=== PATIENT | female | born 1975 | race Two or more races ===

== ENCOUNTER 2016-07-24 10:59 | Outpatient (CLI) | payer BC ==
[2016-07-24 12:02] LABS: BASOPHILS % (AUTO) 0.9 % (0.0-2.0); EOSINOPHILS # (AUTO) 0.1 /CMM (0.0-0.7); EOSINOPHILS % (AUTO) 2.9 % (0.0-6.0); HEMATOCRIT 40 % (33-45); LYMPHOCYTES # (AUTO) 1.7 /CMM (0.8-4.8); LYMPHOCYTES % (AUTO) 47.4 % (20.0-44.0); MEAN CORPUSCULAR HEMOGLOBIN 29 PG (26.0-33.0); MEAN CORPUSCULAR HGB CONC 33 g/dl (31.0-36.0); MEAN CORPUSCULAR VOLUME 87 fL (82-100); MONOCYTES # (AUTO) 0.3 /CMM (0.1-1.30); MONOCYTES % (AUTO) 7.5 % (2.0-12.0); NEUTROPHILS # (AUTO) 1.5 /CMM (1.8-8.9); NEUTROPHILS % (AUTO) 41.3 % (43.0-81.0); PLATELET COUNT (AUTO) 192 /CMM (150-450); RDW COEFFICIENT OF VARIATION 13.1 (11.5-15.0); RED BLOOD CELL COUNT(AUTO) 4.58 MIL/uL (4.0-5.2); WHITE BLOOD COUNT (AUTO) 3.7 K/uL (4.3-11.0)
[2016-07-24 12:21] LABS: APPEARANCE,URINE CLEAR (CLEAR); BILIRUBIN,URINE NEGATIVE (NEGATIVE); BLOOD, URINE TRACE-INTA Ery/uL (NEGATIVE); COLOR,URINE YELLOW (YELLOW); KETONES,URINE NEGATIVE (NEGATIVE); LEUKOCYTE ESTERASE ,URINE 2+ (NEGATIVE); NITRITE, URINE NEGATIVE (NEGATIVE); PH,URINE 5.5 (5.0-8.0); PROTEIN,URINE NEGATIVE (NEGATIVE); UGLUCOSE NEGATIVE (NEGATIVE); UROBILINOGEN,URINE 0.2 EU/dL (0.2)
[2016-07-24 12:33] LABS: BILIRUBIN,TOTAL 0.8 mg/dL (0.2-1.0); CALCIUM, SERUM 8.8 mg/dL (8.5-10.1); CREATININE 0.7 mg/dL (0.6-1.3); POTASSIUM 3.9 mmol/L (3.5-5.1)
[2016-07-24 12:42] LABS: THYROID STIMULATING HORMONE 1.785 uIU/mL (0.358-3.74)
[2016-07-24 13:54] LABS: ADD URINE CULTURE YES; BACTERIA,URINE Few /HPF (None Seen); MUCUS,URINE Moderate /LPF (None Seen); RBC,URINE 0-2 /HPF (0-2); SQUAMOUS EPITHELIAL CELL,UR Moderate /HPF (None Seen); WBC,URINE 21-50 /HPF (0-3)
== END 2016-07-24 23:59 | disposition home or self-care (01) ==
LOC: LAB 10:59
PROVIDERS: ATTEND Internal Medicine
DX: Z00.00 Encounter for general adult medical examination without abnormal findings (principal)
CPT/HCPCS: 36415; 80053-TC; 80061-TC; 81000-TC; 84443-TC; 85025-TC; 87086-TC

== ENCOUNTER 2016-10-15 08:29 | Outpatient (CLI) | payer BC ==
[2016-10-15 09:11] LABS: BASOPHILS % (AUTO) 0.9 % (0.0-2.0); EOSINOPHILS # (AUTO) 0.2 /CMM (0.0-0.7); EOSINOPHILS % (AUTO) 3.7 % (0.0-6.0); HEMATOCRIT 38 % (33-45); HEMOGLOBIN 12.6 g/dL (11.5-14.8); LYMPHOCYTES # (AUTO) 2.4 /CMM (0.8-4.8); LYMPHOCYTES % (AUTO) 48.6 % (20.0-44.0); MEAN CORPUSCULAR HEMOGLOBIN 29 PG (26.0-33.0); MEAN CORPUSCULAR HGB CONC 33 g/dl (31.0-36.0); MEAN CORPUSCULAR VOLUME 87 fL (82-100); MONOCYTES # (AUTO) 0.4 /CMM (0.1-1.30); MONOCYTES % (AUTO) 8.2 % (2.0-12.0); NEUTROPHILS # (AUTO) 1.9 /CMM (1.8-8.9); NEUTROPHILS % (AUTO) 38.6 % (43.0-81.0); PLATELET COUNT (AUTO) 207 /CMM (150-450); RDW COEFFICIENT OF VARIATION 12.9 (11.5-15.0); RED BLOOD CELL COUNT(AUTO) 4.31 MIL/uL (4.0-5.2)
== END 2016-10-15 23:59 | disposition home or self-care (01) ==
LOC: LAB 08:29
PROVIDERS: ATTEND Internal Medicine
DX: D72.819 Decreased white blood cell count, unspecified (principal)
CPT/HCPCS: 36415; 85025-TC

== ENCOUNTER 2016-11-04 07:51 | Outpatient (CLI) | payer BC ==
[2016-11-04 09:15] LABS: BASOPHILS % (AUTO) 1.1 % (0.0-2.0); EOSINOPHILS # (AUTO) 0.2 /CMM (0.0-0.7); EOSINOPHILS % (AUTO) 4.2 % (0.0-6.0); HEMATOCRIT 37 % (33-45); HEMOGLOBIN 12.3 g/dL (11.5-14.8); LYMPHOCYTES # (AUTO) 2.2 /CMM (0.8-4.8); LYMPHOCYTES % (AUTO) 50.5 % (20.0-44.0); MEAN CORPUSCULAR HEMOGLOBIN 29 PG (26.0-33.0); MEAN CORPUSCULAR HGB CONC 33 g/dl (31.0-36.0); MEAN CORPUSCULAR VOLUME 88 fL (82-100); MONOCYTES # (AUTO) 0.4 /CMM (0.1-1.30); MONOCYTES % (AUTO) 8.4 % (2.0-12.0); NEUTROPHILS # (AUTO) 1.5 /CMM (1.8-8.9); NEUTROPHILS % (AUTO) 35.8 % (43.0-81.0); PLATELET COUNT (AUTO) 190 /CMM (150-450); RDW COEFFICIENT OF VARIATION 13.2 (11.5-15.0); WHITE BLOOD COUNT (AUTO) 4.3 K/uL (4.3-11.0)
[2016-11-04 09:40] LABS: ALANINE AMINOTRANSFERASE 23 U/L (12-78); ALBUMIN 3.9 g/dL (3.4-5.0); ASPARTATE AMINOTRANSFERASE 19 U/L (15-37); BILIRUBIN,TOTAL 0.5 mg/dL (0.2-1.0); CALCIUM, SERUM 8.5 mg/dL (8.5-10.1); CARBON DIOXIDE 26 mmol/L (21-32); CHLORIDE 104 mmol/L (98-107); CREATININE 0.5 mg/dL (0.6-1.3); GLUCOSE 82 mg/dL (74-106); POTASSIUM 4.3 mmol/L (3.5-5.1); SODIUM SERUM 139 mmol/L (136-145); TOTAL PROTEIN, SERUM 6.9 g/dL (6.4-8.2); UREA NITROGEN, BLOOD 12 mg/dL (7-18)
[2016-11-04 09:56] LABS: ALKALINE PHOSPHATASE 52 U/L (46-116)
[2016-11-04 10:01] LABS: C-REACTIVE PROTEIN < 0.2 mg/dL (0.0-0.9)
== END 2016-11-04 23:59 | disposition home or self-care (01) ==
LOC: LAB 07:51
PROVIDERS: ATTEND Internal Medicine Hematology & Oncology
DX: D72.820 Lymphocytosis (symptomatic) (principal); N60.01 Solitary cyst of right breast; N60.02 Solitary cyst of left breast; Z80.42 Family history of malignant neoplasm of prostate; Z80.3 Family history of malignant neoplasm of breast
CPT/HCPCS: 36415; 80053-TC; 82746; 85025-TC; 86140-TC; 86431-TC; 86706; 86803; 87340

== ENCOUNTER 2016-12-09 08:03 | Outpatient (CLI) | payer BC ==
[2016-12-09 08:55] LABS: BASOPHILS % (AUTO) 0.8 % (0.0-2.0); EOSINOPHILS # (AUTO) 0.2 /CMM (0.0-0.7); EOSINOPHILS % (AUTO) 4.4 % (0.0-6.0); HEMATOCRIT 40 % (33-45); HEMOGLOBIN 13.3 g/dL (11.5-14.8); LYMPHOCYTES # (AUTO) 2.4 /CMM (0.8-4.8); LYMPHOCYTES % (AUTO) 45.2 % (20.0-44.0); MEAN CORPUSCULAR HEMOGLOBIN 29 PG (26.0-33.0); MEAN CORPUSCULAR HGB CONC 33 g/dl (31.0-36.0); MEAN CORPUSCULAR VOLUME 88 fL (82-100); MONOCYTES # (AUTO) 0.4 /CMM (0.1-1.30); MONOCYTES % (AUTO) 7.9 % (2.0-12.0); NEUTROPHILS # (AUTO) 2.2 /CMM (1.8-8.9); NEUTROPHILS % (AUTO) 41.7 % (43.0-81.0); PLATELET COUNT (AUTO) 244 /CMM (150-450); RDW COEFFICIENT OF VARIATION 12.9 (11.5-15.0); RED BLOOD CELL COUNT(AUTO) 4.55 MIL/uL (4.0-5.2); WHITE BLOOD COUNT (AUTO) 5.3 K/uL (4.3-11.0)
== END 2016-12-09 23:59 | disposition home or self-care (01) ==
LOC: LAB 08:03
PROVIDERS: ATTEND Internal Medicine Hematology & Oncology
DX: D72.820 Lymphocytosis (symptomatic) (principal)
CPT/HCPCS: 36415; 85025-TC

== ENCOUNTER 2017-02-01 07:58 | Emergency (ER) | payer BC, OTHER ==
[~2017-02-01] VITALS: Ht 167.6 cm; Wt 61.2 kg
[2017-02-01 08:05] VITALS: BP 116/66
== END 2017-02-01 08:24 | disposition home or self-care (01) ==
LOC: ER 08:00
DX: H60.92 Unspecified otitis externa, left ear (principal)
CPT/HCPCS: 99283; A4606; Z7610

== ENCOUNTER 2017-02-22 07:43 | Outpatient (CLI) | payer BC ==
[2017-02-22 07:59] LABS: BASOPHILS % (AUTO) 0.8 % (0.0-2.0); EOSINOPHILS # (AUTO) 0.2 /CMM (0.0-0.7); EOSINOPHILS % (AUTO) 3.5 % (0.0-6.0); HEMATOCRIT 37 % (33-45); HEMOGLOBIN 12.4 g/dL (11.5-14.8); LYMPHOCYTES # (AUTO) 2.9 /CMM (0.8-4.8); LYMPHOCYTES % (AUTO) 45.8 % (20.0-44.0); MEAN CORPUSCULAR HEMOGLOBIN 29 PG (26.0-33.0); MEAN CORPUSCULAR HGB CONC 34 g/dl (31.0-36.0); MEAN CORPUSCULAR VOLUME 86 fL (82-100); MONOCYTES # (AUTO) 0.4 /CMM (0.1-1.30); MONOCYTES % (AUTO) 7.1 % (2.0-12.0); NEUTROPHILS # (AUTO) 2.6 /CMM (1.8-8.9); NEUTROPHILS % (AUTO) 42.8 % (43.0-81.0); PLATELET COUNT (AUTO) 208 /CMM (150-450); RDW COEFFICIENT OF VARIATION 12.3 (11.5-15.0); RED BLOOD CELL COUNT(AUTO) 4.24 MIL/uL (4.0-5.2); WHITE BLOOD COUNT (AUTO) 6.1 K/uL (4.3-11.0)
== END 2017-02-22 23:59 | disposition home or self-care (01) ==
LOC: LAB 07:43
PROVIDERS: ATTEND Internal Medicine Hematology & Oncology
DX: D72.820 Lymphocytosis (symptomatic) (principal)
CPT/HCPCS: 36415; 85025-TC

== ENCOUNTER 2017-03-03 07:36 | Outpatient (CLI) | payer BC ==
[2017-03-03 08:17] LABS: BASOPHILS % (AUTO) 0.9 % (0.0-2.0); EOSINOPHILS # (AUTO) 0.3 /CMM (0.0-0.7); EOSINOPHILS % (AUTO) 4.5 % (0.0-6.0); HEMATOCRIT 40 % (33-45); HEMOGLOBIN 13.2 g/dL (11.5-14.8); LYMPHOCYTES # (AUTO) 3.1 /CMM (0.8-4.8); LYMPHOCYTES % (AUTO) 56.4 % (20.0-44.0); MEAN CORPUSCULAR HEMOGLOBIN 29 PG (26.0-33.0); MEAN CORPUSCULAR HGB CONC 33 g/dl (31.0-36.0); MEAN CORPUSCULAR VOLUME 88 fL (82-100); MONOCYTES # (AUTO) 0.3 /CMM (0.1-1.30); MONOCYTES % (AUTO) 6.1 % (2.0-12.0); NEUTROPHILS # (AUTO) 1.8 /CMM (1.8-8.9); NEUTROPHILS % (AUTO) 32.1 % (43.0-81.0); PLATELET COUNT (AUTO) 236 /CMM (150-450); RDW COEFFICIENT OF VARIATION 12.7 (11.5-15.0); RED BLOOD CELL COUNT(AUTO) 4.59 MIL/uL (4.0-5.2); WHITE BLOOD COUNT (AUTO) 5.6 K/uL (4.3-11.0)
[2017-03-03 08:33] LABS: ALBUMIN 4.3 g/dL (3.4-5.0); BILIRUBIN,TOTAL 0.4 mg/dL (0.2-1.0); CALCIUM, SERUM 9.2 mg/dL (8.5-10.1); CREATININE 0.7 mg/dL (0.6-1.3); POTASSIUM 4.3 mmol/L (3.5-5.1); TOTAL PROTEIN, SERUM 7.3 g/dL (6.4-8.2)
== END 2017-03-03 23:59 ==
LOC: LAB 07:36
PROVIDERS: ATTEND Internal Medicine Hematology & Oncology
DX: D72.820 Lymphocytosis (symptomatic) (principal)
CPT/HCPCS: 36415; 80053-TC; 85025-TC

== ENCOUNTER 2017-06-17 11:55 | Outpatient (CLI) | payer BC | END 2017-06-17 23:59 | disposition home or self-care (01) | LOC: RAD 11:55 | PROVIDERS: ATTEND Internal Medicine | DX: M54.6 Pain in thoracic spine (principal) | CPT/HCPCS: 72074-TC ==

== ENCOUNTER 2017-07-14 07:46 | Outpatient (CLI) | payer BC ==
[2017-07-14 08:41] LABS: BASOPHILS % (AUTO) 0.7 % (0.0-2.0); HEMATOCRIT 38 % (33-45); HEMOGLOBIN 12.9 g/dL (11.5-14.8); LYMPHOCYTES % (AUTO) 45.7 % (20.0-44.0); MEAN CORPUSCULAR HGB CONC 34 g/dl (31.0-36.0); MEAN CORPUSCULAR VOLUME 87 fL (82-100); MONOCYTES # (AUTO) 0.4 /CMM (0.1-1.30); MONOCYTES % (AUTO) 6.8 % (2.0-12.0); NEUTROPHILS # (AUTO) 2.9 /CMM (1.8-8.9); NEUTROPHILS % (AUTO) 44.8 % (43.0-81.0); PLATELET COUNT (AUTO) 213 /CMM (150-450); RDW COEFFICIENT OF VARIATION 12.6 (11.5-15.0); RED BLOOD CELL COUNT(AUTO) 4.39 MIL/uL (4.0-5.2); WHITE BLOOD COUNT (AUTO) 6.5 K/uL (4.3-11.0)
[2017-07-14 08:51] LABS: ALBUMIN 4.1 g/dL (3.4-5.0); BILIRUBIN,TOTAL 0.6 mg/dL (0.2-1.0); CALCIUM, SERUM 8.9 mg/dL (8.5-10.1); CREATININE 0.6 mg/dL (0.6-1.3); POTASSIUM 3.9 mmol/L (3.5-5.1); TOTAL PROTEIN, SERUM 7.3 g/dL (6.4-8.2)
== END 2017-07-14 23:59 | disposition home or self-care (01) ==
LOC: LAB 07:46
PROVIDERS: ATTEND Internal Medicine Hematology & Oncology
DX: D72.820 Lymphocytosis (symptomatic) (principal)
CPT/HCPCS: 36415; 80053-TC; 83615-TC; 85025-TC

== ENCOUNTER 2017-08-05 14:00 | Outpatient (CLI) | payer BC | END 2017-08-05 23:59 | disposition home or self-care (01) | LOC: WOU 14:00 | PROVIDERS: ATTEND Surgery | DX: N60.11 Diffuse cystic mastopathy of right breast (principal); N60.12 Diffuse cystic mastopathy of left breast; N64.4 Mastodynia; Z80.3 Family history of malignant neoplasm of breast | CPT/HCPCS: G0463 ==

== ENCOUNTER 2017-09-06 13:25 | Outpatient (CLI) | payer BC | END 2017-09-06 23:59 | disposition home or self-care (01) | LOC: WOU 13:25 | PROVIDERS: ATTEND Surgery | DX: Z01.818 Encounter for other preprocedural examination (principal); N60.12 Diffuse cystic mastopathy of left breast; N60.11 Diffuse cystic mastopathy of right breast; N64.4 Mastodynia; Z80.3 Family history of malignant neoplasm of breast | CPT/HCPCS: G0463 ==

== ENCOUNTER 2017-09-08 08:42 | Outpatient (CLI) | payer BC ==
[2017-09-08 09:15] LABS: BASOPHILS % (AUTO) 0.9 % (0.0-2.0); EOSINOPHILS % (AUTO) 3.6 % (0.0-6.0); HEMATOCRIT 38 % (33-45); HEMOGLOBIN 12.8 g/dL (11.5-14.8); LYMPHOCYTES # (AUTO) 2.3 /CMM (0.8-4.8); LYMPHOCYTES % (AUTO) 42.7 % (20.0-44.0); MEAN CORPUSCULAR HGB CONC 33 g/dl (31.0-36.0); MEAN CORPUSCULAR VOLUME 89 fL (82-100); MONOCYTES # (AUTO) 0.4 /CMM (0.1-1.30); NEUTROPHILS # (AUTO) 2.4 /CMM (1.8-8.9); NEUTROPHILS % (AUTO) 44.8 % (43.0-81.0); PLATELET COUNT (AUTO) 214 /CMM (150-450); RED BLOOD CELL COUNT(AUTO) 4.29 MIL/uL (4.0-5.2); WHITE BLOOD COUNT (AUTO) 5.4 K/uL (4.3-11.0)
[2017-09-08 09:31] LABS: INR 1.03 (0.87-1.13)
[2017-09-08 10:57] LABS: CALCIUM, SERUM 8.4 mg/dL (8.5-10.1); CREATININE 0.6 mg/dL (0.6-1.3); POTASSIUM 3.9 mmol/L (3.5-5.1)
== END 2017-09-08 23:59 | disposition home or self-care (01) ==
LOC: LAB 08:42
PROVIDERS: ATTEND Surgery
DX: Z01.818 Encounter for other preprocedural examination (principal); N64.4 Mastodynia; N63.0 Unspecified lump in unspecified breast; Z80.3 Family history of malignant neoplasm of breast
CPT/HCPCS: 36415; 80048-TC; 84703-TC; 85025-TC; 85730-TC

== ENCOUNTER 2017-09-20 05:44 | Inpatient (IN) | payer BC ==
[~2017-09-20] VITALS: Ht 157.5 cm; Wt 49.0 kg
[2017-09-20] VITALS (7 sets, daily range): BP systolic 86–114; BP diastolic 52–71
[2017-09-20] MEDS ORDERED: ANESTHESIA TRAY IN PYXIS 1 EA TRAY MC ONE (06:41)
[2017-09-20] MEDS ORDERED: oxyCODONE HCL SR 10MG TAB.SR.12H PO ONE ×2 (06:50→06:53)
[2017-09-20] MEDS ORDERED: ACETAMINOPHEN 325 MG TABLET PO ONE (06:50)
[2017-09-20] MEDS ORDERED: CELECOXIB 100 MG CAPSULE PO ONE (06:50)
[2017-09-20] MEDS ORDERED: CELECOXIB 100 MG CAPSULE ONE (06:53)
[2017-09-20] MEDS ORDERED: ACETAMINOPHEN 325 MG TABLET ONE (06:53)
[2017-09-20] MEDS ORDERED: KETAMINE HCL (500MG/10ML) 50 MG/ML VIAL ONE (07:31)
[2017-09-20] MEDS ORDERED: MIDAZOLAM HCL 2 MG/2ML VIAL ONE (07:31)
[2017-09-20] MEDS ORDERED: HYDROMORPHONE INJ 2 MG/ML DISP.SYRIN ONE ×2 (07:31→13:04)
[2017-09-20] MEDS ORDERED: ROCURONIUM BROMIDE 50 MG/5 ML ONE ×2 (07:32→09:55)
[2017-09-20] MEDS ORDERED: LIDOCAINE 1%-EPI 1:100,000 20 ML VIAL ONE (08:08)
[2017-09-20] MEDS ORDERED: BUPIVACAINE 0.25% 75 MG/30 ML VIAL ONE ×2 (08:08→09:05)
[2017-09-20] MEDS ORDERED: DESFLURANE 240 ML BOTTLE IH ONE (10:05)
[2017-09-20] MEDS ORDERED: BACITRACIN 50000 UNITS/VIAL ONE (10:59)
[2017-09-20] MEDS ORDERED: ONDANSETRON HCL/PF 4 MG/2 ML VIAL ONE (13:09)
--- NOTE | 2017-09-20 14:15 | NUR ---
MS RN NOTES PATIENT BROUGHT IN VIA BED FROM OR, PATIENT IS AWAKE, A/O X4, APPEARS WEAK BUT WITHOUT SHORTNESS OF BREATH. ON ROOM AIR, TOLERATING WELL. MADE COMFORTABLE IN BED, VS TAKEN AND RECORDED. S/P DOUBLE MASTECTOMY, BREAST RECONSTRUCTION TODAY BY DR. MUSA AND DR. LEAL. CHEST WALL DRESSING IN PLACE, TATE DRAIN BOTH LATERAL SIDE OF THE CHEST INTACT, WITH MINIMAL FLUID SANGUINEOUS DRAINAGE. DENIES PAIN, BUT REPORTED NAUSEA. WILL MEDICATE PATIENT WITH PRN ZOFRAN. PLACE CALL LIGHT WITHIN REACH. WILL CONT TO MONITOR, NOTIFIED DR. SEPULVEDA.
[2017-09-20] MEDS: ZOFRAN 4mg/2ML IV PRN (14:58)
[2017-09-20] MEDS ORDERED: DULCOLAX 10 MG/SUPP.RECT RC PRN (15:00)
[2017-09-20] MEDS ORDERED: TYLENOL 650 MG TABLET PO PRN (15:00)
[2017-09-20] MEDS ORDERED: COLACE 100 MG CAPSULE PO PRN (15:00)
[2017-09-20] MEDS ORDERED: MAGNESIUM HYDROXIDE 30 ML UDC PO PRN (15:30)
[2017-09-20] MEDS ORDERED: MAG HYDROX/AL HYDROX/SIMETH 30 ML UDC PO PRN (15:30)
[2017-09-20] MEDS ORDERED: HYDROCODONE/APAP 5/325MG 1 EACH TABLET PO PRN (15:30)
[2017-09-20] MEDS ORDERED: ONDANSETRON HCL/PF 4 MG/2 ML VIAL IVP PRN (15:30)
[2017-09-20] MEDS ORDERED: Z GUARD REMEDY 2 OZ OINT TP PRN (15:30)
[2017-09-20] MEDS ORDERED: ACETAMINOPHEN 325 MG TABLET PO PRN (15:30)
[2017-09-20] MEDS ORDERED: ZOLPIDEM TARTRATE 5 MG TABLET PO PRN (15:30)
[2017-09-20] MEDS: Potassium Chloride 20 MEQ in IV D5/0.45 NACL 1,000 ML IV PRN (15:35)
[2017-09-20] MEDS: ANCEF 1 G in IV D5W 50 ML IV SCH (16:27)
[2017-09-20] MEDS: PROCHLORPERAZINE EDISYLATE 10 MG/2 ML VIAL IVP PRN (17:41)
--- NOTE | 2017-09-20 19:45 | NUR ---
MS RN CLOSING NOTES PATIENT IN BED, AWAKE, COOPERATIVE. NOW ABLE TO TOLERATE SITTING UPRIGHT IN BED. MINIMAL PAIN AT THIS TIME, OFFERED PAIN MEDICATION BUT PATIENT DECLINED, PER PATIENT SHE ONLY FEELS PAIN WHEN SHE MOVES OTHERWISE SHES OK. BREATHING ON ROOM AIR WITH NO SOB. NAUSEA MANAGED BY IV ZOFRAN PRN AND IV COMPAZINE PRN WITH RELIEF, PROVIDED ICE CHIPS. VS REMAINS STABLE, AFEBRILE. INCISION DRESSING INTACT, TATE DRAIN X2 WITH SANGUINEOUS FLUID DRAINAGE, MAINTAINED HAND HYGIENE. IVC IN RIGHT HAND WITH IVF D5 1/2 NS + KCL 20MEQ INFUSING AT 75ML/HR. SCD IN PLACE, ROSSI CATH DRAINING TO GRAVITY, BELOW BLADDER, BAG OFF THE FLOOR, URINARY CATH TO BE REMOVED IN AM PER MD. CALL LIGHT WITHIN REACH. ENDORSED TO ONCOMING RN.
--- NOTE | 2017-09-20 19:49 | NUR ---
MS RN NOTES Patient received in bed, awake and verbally responsive. A&O x4. Complaints of pain/discomfort with movement. TATE drainage in place and intact: 2 each drainage to each side with adequate suction. Patient stated, "I am so sleepy. I want to rest". at bedside. Safety measures in place. Will continue to monitor and assess patient
[2017-09-21] MEDS: ANCEF 1 G in IV D5W 50 ML IV SCH (00:37)
[2017-09-21] MEDS: HYDROCODONE/APAP 5/325MG 1 EACH TABLET PO PRN ×3 (00:47→20:14)
--- NOTE | 2017-09-21 01:13 | NUR ---
MS RN - PRN NOTES Patient asked for 2 [place] 5/325 for 8-9/10 pain on surgical sites.
--- NOTE | 2017-09-21 04:34 | NUR ---
MS RN NOTES Patient sleeping in bed comfortably, easily arousable. Not in apparent distress. no SOB noted. HOB slightly elevated. Safety measures in place. Call light within reach. Will continue to monitor patient
--- NOTE | 2017-09-21 05:37 | NUR ---
MS BHAVYA NOTES - D/C ROSSI Rossi cath has been discontinued. No discomfort reported as of this moment. Will monitor for urinary retention.
--- NOTE | 2017-09-21 05:37 | NUR ---
MS RN NOTES - TATE DRAINAGE TATE Right #1 = 25cc TATE Right #2 = 25cc TATE Left #1 = 25cc TATE Left #2 = 25cc
--- NOTE | 2017-09-21 05:54 | NUR ---
MS RN CLOSING NOTES Patient awake, sitting in bed, verbally responsive. A&O x4. Complaints of pain/discomfort with movement. TATE drainage in place and intact: 2 each drainage to each side with adequate suction. Collected 25cc/ea drainage. 920cc or urine (output) collected prior to jim cath d/c. Surgical site dressing in place with no excessive bleeding noted. at bedside. Safety measures in place. Will endorse to oncoming shift nurse
[2017-09-21 06:49] LABS: BASOPHILS % (AUTO) 0.3 % (0.0-2.0); EOSINOPHILS % (AUTO) 0.2 % (0.0-6.0); HEMATOCRIT 32 % (33-45); HEMOGLOBIN 10.9 g/dL (11.5-14.8); LYMPHOCYTES # (AUTO) 1.3 /CMM (0.8-4.8); LYMPHOCYTES % (AUTO) 18.4 % (20.0-44.0); MEAN CORPUSCULAR HEMOGLOBIN 31 PG (26.0-33.0); MEAN CORPUSCULAR HGB CONC 34 g/dl (31.0-36.0); MEAN CORPUSCULAR VOLUME 91 fL (82-100); MONOCYTES # (AUTO) 0.6 /CMM (0.1-1.30); MONOCYTES % (AUTO) 8.4 % (2.0-12.0); NEUTROPHILS # (AUTO) 5.2 /CMM (1.8-8.9); NEUTROPHILS % (AUTO) 72.7 % (43.0-81.0); PLATELET COUNT (AUTO) 151 /CMM (150-450); RDW COEFFICIENT OF VARIATION 12.8 (11.5-15.0); RED BLOOD CELL COUNT(AUTO) 3.57 MIL/uL (4.0-5.2); WHITE BLOOD COUNT (AUTO) 7.1 K/uL (4.3-11.0)
[2017-09-21 07:08] LABS: CHOLESTEROL 136 mg/dL (<200); HDL CHOLESTEROL 70 mg/dL (40-60); LDL 68 mg/dL (0-99); TRIGLYCERIDES 45 mg/dL (30-150)
[2017-09-21 07:28] LABS: CALCIUM, SERUM 8.1 mg/dL (8.5-10.1); CREATININE 0.8 mg/dL (0.6-1.3); MAGNESIUM 1.9 mg/dL (1.8-2.4); PHOSPHORUS 2.9 mg/dL (2.5-4.9); POTASSIUM 4.4 mmol/L (3.5-5.1)
[2017-09-21 08:00] VITALS: BP 95/60
--- NOTE | 2017-09-21 08:00 | NUR ---
MS RN RECEIVED ON BED, AWAKE,ALERT,ORIENTED X4,NOT IN AY FORM OF DISTRESS,RESPIRATIONS EVEN AND UNLABORED,NO SOB NOTED, LUNGS ARE CLEAR,ABDOMEN SOFT,POSITIVE BOWEL SOUNDS, S/P BILATERAL MASTECTOMY W/ BILATERAL TATE DRAIN,SEROUS SANGUINOUS DRAINAGE,,DENIES PAIN AT THIS TIME, WILL MONITOR PATIENT.
--- NOTE | 2017-09-21 09:00 | NUR ---
MS LATIF BREAKFAST SERVED, DUE MEDS GIVEN,TOLERATED WELL.
[2017-09-21] MEDS: HEPARIN SODIUM, PORCINE 5000 UNITS/1 ML VIAL SQ SCH ×2 (09:32→21:33)
--- NOTE | 2017-09-21 13:00 | NUR ---
MS RN WAS SEEN BY DR. HIMANSHU Freedman/ ORDER TO CHANGE DRESSING IN AM, BEFORE PATIENT GO HOME
[2017-09-21 16:00] VITALS: BP 104/65
[2017-09-21] MEDS: CEFAZOLIN 1 GM in IV NS 0.9% 50 ML IV SCH (17:51)
--- NOTE | 2017-09-21 18:00 | NUR ---
MS RN ON BED,NO DISTRESS NOTED.
--- NOTE | 2017-09-21 19:47 | NUR ---
MS RN NOTES Patient received in chair, awake and verbally responsive. A&O x4. TATE drainage in place and intact: 2 each drainage to each side with adequate suction. Dressing clean and dry with no excessive bleeding noted. Safety measures in place. Call light within reach. Will continue to monitor and assess patient
[2017-09-21 20:00] VITALS: BP 112/60
--- NOTE | 2017-09-21 20:15 | NUR ---
MS RN - PRN NOTES Patient requested for [place] 5-325 2 tabs for 8-9/10 pain on surgical sites on both left and right side. Will assess for effectiveness
[2017-09-21] MEDS: PROCHLORPERAZINE EDISYLATE 10 MG/2 ML VIAL IVP PRN (22:35)
--- NOTE | 2017-09-21 22:35 | NUR ---
MS RN - PRN NOTES Patient requested Compazine for Nausea. Will assess for effectiveness
[2017-09-21] MEDS: Potassium Chloride 20 MEQ in IV D5/0.45 NACL 1,000 ML IV PRN (22:36)
[2017-09-22] MEDS: CEFAZOLIN 1 GM in IV NS 0.9% 50 ML IV SCH ×3 (00:24→18:09)
[2017-09-22] MEDS: MORPHINE SULFATE INJ 4 MG/ML DISP.SYRIN IV PRN ×2 (01:27→11:28)
--- NOTE | 2017-09-22 01:27 | NUR ---
MS RN - PRN NOTES Patient requested for Morphine Sulfate 2mg via IV for pain 8-910 on surgical sites. Also, requested for Zofran for Nausea. Will assess for effectiveness in an hour
[2017-09-22] MEDS: ZOFRAN 4mg/2ML IV PRN (01:32)
--- NOTE | 2017-09-22 03:10 | NUR ---
MS RN Notes Patient in bed, asleep, easily arousable. No complaints of pain at this time. No facial grimacing noted. Safety measures in place. Will continue to monitor patient
[2017-09-22] MEDS: PROCHLORPERAZINE EDISYLATE 10 MG/2 ML VIAL IVP PRN ×3 (06:28→19:42)
[2017-09-22] MEDS: HYDROCODONE/APAP 5/325MG 1 EACH TABLET PO PRN ×2 (06:28→19:51)
--- NOTE | 2017-09-22 06:47 | NUR ---
MS RN NOTES Patient in bed, awake and verbally responsive. A&O x4. TATE drainage in place and intact: 2 each drainage to each side with adequate suction: 20cc each drainage. Dressing clean and dry with no excessive bleeding noted. Patient complained of pain on surgical sites and naseaus. Given [place] 5-325 2 tabs for pain and Compazine for nausea. Will endorse to monitor for effectiveness. at bedside. All needs anticipated and met. Safety measures in place. Call light within reach. Will endorse to oncoming shift nurse.
[2017-09-22 08:00] VITALS: BP 93/52
--- NOTE | 2017-09-22 08:00 | NUR ---
MS RN RECEIVED ON BED,AWAKE,ALERT,ORIENTEDX4,NOT IN ANY FORM OF DISTRESS, RESPIRATIONS EVEN AND UNLABORED,NO SOB NOTED, LUNGS ARE CLEAR,ABDOMEN SOFT,POSITIVE BOWEL SOUNDS, DENIES PAIN AT THIS TIME, WILL MONITOR PATIENT'S CONDITION.
[2017-09-22] MEDS ORDERED: MAGNESIUM CITRATE 296 ML BOTTLE PO ONE (08:30)
--- NOTE | 2017-09-22 09:00 | NUR ---
MS LATIF BREAKFAST SERVED,DUE MEDS GIVEN,TOLERATED WELL.
[2017-09-22] MEDS: HEPARIN SODIUM, PORCINE 5000 UNITS/1 ML VIAL SQ SCH ×2 (09:09→20:16)
[2017-09-22 11:10] LABS: BASOPHILS % (AUTO) 0.3 % (0.0-2.0); EOSINOPHILS % (AUTO) 0.5 % (0.0-6.0); HEMATOCRIT 31 % (33-45); HEMOGLOBIN 10.3 g/dL (11.5-14.8); LYMPHOCYTES # (AUTO) 1.1 /CMM (0.8-4.8); LYMPHOCYTES % (AUTO) 18.8 % (20.0-44.0); MEAN CORPUSCULAR HEMOGLOBIN 30 PG (26.0-33.0); MEAN CORPUSCULAR HGB CONC 34 g/dl (31.0-36.0); MEAN CORPUSCULAR VOLUME 90 fL (82-100); MONOCYTES # (AUTO) 0.4 /CMM (0.1-1.30); MONOCYTES % (AUTO) 6.6 % (2.0-12.0); NEUTROPHILS # (AUTO) 4.1 /CMM (1.8-8.9); NEUTROPHILS % (AUTO) 73.8 % (43.0-81.0); PLATELET COUNT (AUTO) 145 /CMM (150-450); RED BLOOD CELL COUNT(AUTO) 3.43 MIL/uL (4.0-5.2); WHITE BLOOD COUNT (AUTO) 5.6 K/uL (4.3-11.0)
[2017-09-22 11:21] LABS: CALCIUM, SERUM 7.8 mg/dL (8.5-10.1); CREATININE 0.7 mg/dL (0.6-1.3); POTASSIUM 4.2 mmol/L (3.5-5.1)
--- NOTE | 2017-09-22 13:00 | NUR ---
MS RN DRESSING CHANGED ORDERED.
[2017-09-22 16:00] VITALS: BP 105/70
--- NOTE | 2017-09-22 18:29 | NUR ---
MS RN ON BED, ALL NEEDS ATTENDED, NO DISTRESS NOTED.
--- NOTE | 2017-09-22 19:05 | NUR ---
MS RN NOTES RECEIVED PT IN BED,RESTING COMFORTABLY. AROUSES EASILY, A/O X 4, VERBALLY RESPONSIVE. NO DISTRESS NOR SOB NOTED. RESPIRATIONS EVEN AND UNLABORED. ABDOMEN IS SOFT AND NON DISTENDED, WITH NORMOACTIVE BOWEL SOUNDS X 4. DENIES PAIN AT THIS TIME. TATE DRAINS INTACT. PT ON S/P MASTECTOMY ON 09/20, WITH CLEAN AND INTACT DRESSING. SAFETY PRECAUTIONS OBSERVED. ALL NEEDS ATTENDED AND MET. WILL MONITOR PT CLOSELY.
--- NOTE | 2017-09-22 19:08 | NUR ---
IV SITE ON RIGHT HAND INTACT AND PATENT, NO S/S OF INFILTRATION NOTED, IVF INFUSING WELL.
[2017-09-22 20:00] VITALS: BP_SYST 99; BP_DIAS 62; BP_DIAS 72
[2017-09-23] MEDS: CEFAZOLIN 1 GM in IV NS 0.9% 50 ML IV SCH ×2 (00:21→08:48)
[2017-09-23] MEDS: Potassium Chloride 20 MEQ in IV D5/0.45 NACL 1,000 ML IV PRN (00:23)
--- NOTE | 2017-09-23 00:23 | NUR ---
PT RESTING COMFORTABLY AT THIS TIME, AROUSES EASILY, REMAINS A/O X 4, VERBALLY RESPONSIVE. NO DISTRESS, NO SOB AT THIS TIME. DENIES ANY PAIN OR DISCOMFORT AT THIS TIME. PER PT SHE WILL CALL IF SHE NEEDS SOMETHING. CALL LIGHT WITHIN REACH. SAFETY PRECAUTIONS OBSERVED. WILL CONT TO MONITOR.
--- NOTE | 2017-09-23 06:40 | NUR ---
MS RN NOTES PT IS AWAKE, AMBULATING AT THE HALLWAY WITH AT THIS TIME, IN BED, A/O X 4, VERBALLY RESPONSIVE. NO DISTRESS NOR SOB NOTED. RESPIRATIONS EVEN AND UNLABORED. ABDOMEN IS SOFT AND NON DISTENDED, WITH NORMOACTIVE BOWEL SOUNDS X 4. DENIES PAIN AT THIS TIME. TATE DRAINS INTACT. PT ON S/P MASTECTOMY ON 09/20, WITH CLEAN AND INTACT DRESSING. SAFETY PRECAUTIONS OBSERVED. ALL DUE MEDS GIVEN. ALL NEEDS ATTENDED AND MET. WILL ENDORSE TO NEXT SHIFT FOR EDITH.
[2017-09-23 08:00] VITALS: BP 99/63
[2017-09-23] MEDS: HYDROCODONE/APAP 5/325MG 1 EACH TABLET PO PRN (08:34)
[2017-09-23] MEDS: HEPARIN SODIUM, PORCINE 5000 UNITS/1 ML VIAL SQ SCH (08:46)
[2017-09-23] MEDS ORDERED: CEPH-570 PO (12:46)
[2017-09-23] MEDS ORDERED: HYDR-3972 PO (12:46)
[2017-09-23] MEDS ORDERED: TRAM50TA2 PO (12:46)
--- NOTE | 2017-09-23 13:34 | NUR ---
REPORTED PAIN 8/10 IN R/L BREAST INCISION SITE. NORCO ADMINISTERED ORDERED.
--- NOTE | 2017-09-23 14:37 | NUR ---
DISCHARGE ORDER RECEIVED. DISCHARGE EDUCATION PROVIDED. ALL BELONGING ACCOUNTED FOR. IV CATHETER REMOVED WITH THE TIP INTACT. CLEAN, DRY DRESSINGS COVERING THE BILATERAL MASTECTOMY INCISIONS HEALING BY PRIMARY INTENTION. PATIENT DENIES PAIN/ DISCOMFORT. PATIENT LEFT THE UNIT IN STABLE CONDITION ACOMPANNIED BY THE .
== END 2017-09-23 14:44 | disposition home or self-care (01) | DRG 583 ==
LOC: DS 05:44 → MED 14:10
PROVIDERS: ADMIT Family Medicine; ATTEND Family Medicine
PROC: 0HTV0ZZ Resection of Bilateral Breast, Open Approach (ICD-10-PCS; principal; 2017-09-20 08:20)
DX: C50.919 Malignant neoplasm of unspecified site of unspecified female breast (principal); D72.820 Lymphocytosis (symptomatic); D64.9 Anemia, unspecified; E83.51 Hypocalcemia; Z80.3 Family history of malignant neoplasm of breast; Z98.891 History of uterine scar from previous surgery; Z87.11 Personal history of peptic ulcer disease; K59.00 Constipation, unspecified
CPT/HCPCS: 36415; 80048-TC; 80061-TC; 83735-TC; 84100-TC; 84703-TC; 85025-TC; 86850-TC; 86921-TC; 87081-TC; 88307-TC; A4216; A6402; A6403; J0690; J0780; J1170; J1644; J2250; J2270; J2405; J3480; J3490; J7060; Z7610

== ENCOUNTER 2017-09-27 12:46 | Outpatient (CLI) | payer BC ==
[~2017-09-27 12:46] MED LIST: CEPH-570 PO; HYDR-3972 PO; TRAM50TA2 PO
== END 2017-09-27 23:59 | disposition home or self-care (01) ==
LOC: WOU 12:46
PROVIDERS: ATTEND Surgery
DX: Z48.89 Encounter for other specified surgical aftercare (principal); Z98.890 Other specified postprocedural states; Z90.13 Acquired absence of bilateral breasts and nipples; Z98.82 Breast implant status; Z80.3 Family history of malignant neoplasm of breast
CPT/HCPCS: A6402; G0463; Z7610

== ENCOUNTER 2017-10-04 12:30 | Outpatient (CLI) | payer BC | END 2017-10-04 23:59 | disposition home or self-care (01) | LOC: WOU 12:30 | PROVIDERS: ATTEND Surgery | DX: Z48.89 Encounter for other specified surgical aftercare (principal); T86.828 Other complications of skin graft (allograft) (autograft); Z90.13 Acquired absence of bilateral breasts and nipples; Z98.82 Breast implant status; Z80.3 Family history of malignant neoplasm of breast | CPT/HCPCS: A6402; G0463; Z7610 ==

== ENCOUNTER 2017-10-06 10:10 | Outpatient (CLI) | payer BC | END 2017-10-06 23:59 | disposition home or self-care (01) | LOC: WOU 10:10 | PROVIDERS: ATTEND Specialist | DX: T86.828 Other complications of skin graft (allograft) (autograft) (principal); N64.4 Mastodynia; Z80.3 Family history of malignant neoplasm of breast; Z90.13 Acquired absence of bilateral breasts and nipples | CPT/HCPCS: A6402; G0463; Z7610 ==

== ENCOUNTER 2017-10-11 12:38 | Outpatient (CLI) | payer BC | END 2017-10-11 23:59 | disposition home or self-care (01) | LOC: WOU 12:38 | PROVIDERS: ATTEND Surgery | DX: T86.828 Other complications of skin graft (allograft) (autograft) (principal); N64.4 Mastodynia; Z80.3 Family history of malignant neoplasm of breast; Z90.13 Acquired absence of bilateral breasts and nipples; Z98.82 Breast implant status | CPT/HCPCS: 99214; A6402; Z7610; G0463 ==

== ENCOUNTER 2017-10-18 12:30 | Outpatient (CLI) | payer BC | END 2017-10-18 23:59 | disposition home or self-care (01) | LOC: WOU 12:30 | PROVIDERS: ATTEND Surgery | DX: T86.828 Other complications of skin graft (allograft) (autograft) (principal); N64.4 Mastodynia; Z80.3 Family history of malignant neoplasm of breast; Z90.13 Acquired absence of bilateral breasts and nipples; Z98.82 Breast implant status | CPT/HCPCS: 99213; A6402; Z7610; G0463 ==

== ENCOUNTER 2017-10-25 12:45 | Outpatient (CLI) | payer BC | END 2017-10-25 23:59 | disposition home or self-care (01) | LOC: WOU 12:45 | PROVIDERS: ATTEND Surgery | DX: Z48.89 Encounter for other specified surgical aftercare (principal); N64.4 Mastodynia; Z80.3 Family history of malignant neoplasm of breast; Z90.13 Acquired absence of bilateral breasts and nipples; Z98.82 Breast implant status | CPT/HCPCS: G0463; Z7610 ==

== ENCOUNTER 2017-11-01 12:41 | Outpatient (CLI) | payer BC | END 2017-11-01 23:59 | disposition home or self-care (01) | LOC: WOU 12:41 | PROVIDERS: ATTEND Surgery | DX: Z45.811 Encounter for adjustment or removal of right breast implant (principal); Z45.812 Encounter for adjustment or removal of left breast implant; Z80.3 Family history of malignant neoplasm of breast; Z90.13 Acquired absence of bilateral breasts and nipples | CPT/HCPCS: 99213; A6402; J7040; Z7610; G0463 ==

== ENCOUNTER 2017-11-15 12:20 | Outpatient (CLI) | payer BC | END 2017-11-15 23:59 | disposition home or self-care (01) | LOC: WOU 12:20 | PROVIDERS: ATTEND Surgery | DX: Z45.811 Encounter for adjustment or removal of right breast implant (principal); Z45.812 Encounter for adjustment or removal of left breast implant; N64.4 Mastodynia; Z80.3 Family history of malignant neoplasm of breast; Z90.13 Acquired absence of bilateral breasts and nipples | CPT/HCPCS: G0463; J7040; Z7610 ==

== ENCOUNTER 2017-11-22 13:45 | Outpatient (CLI) | payer BC | END 2017-11-22 23:59 | disposition home or self-care (01) | LOC: WOU 13:45 | PROVIDERS: ATTEND Surgery | DX: Z42.1 Encounter for breast reconstruction following mastectomy (principal); Z80.3 Family history of malignant neoplasm of breast; N64.4 Mastodynia; Z90.13 Acquired absence of bilateral breasts and nipples | CPT/HCPCS: 99213; A6402; J7040; Z7610; G0463 ==

== ENCOUNTER 2017-11-25 13:00 | Outpatient (CLI) | payer BC | END 2017-11-25 23:59 | disposition home or self-care (01) | LOC: WOU 13:00 | PROVIDERS: ATTEND Surgery | PROC: 0HW Skin and Breast, Revision (ICD-10-PCS; principal; 2017-11-25) | PROC: 0HW Skin and Breast, Revision (ICD-10-PCS; principal; 2017-11-25) | DX: Z42.1 Encounter for breast reconstruction following mastectomy (principal) | CPT/HCPCS: A6402; G0463; Z7610 ==

== ENCOUNTER 2017-12-02 13:57 | Outpatient (CLI) | payer BC | END 2017-12-02 23:59 | disposition home or self-care (01) | LOC: WOU 13:57 | PROVIDERS: ATTEND Surgery | DX: Z48.89 Encounter for other specified surgical aftercare (principal); Z09 Encounter for follow-up examination after completed treatment for conditions other than malignant neoplasm; Z90.13 Acquired absence of bilateral breasts and nipples | CPT/HCPCS: G0463; Z7610 ==

== ENCOUNTER 2017-12-16 13:48 | Outpatient (CLI) | payer BC | END 2017-12-16 23:59 | disposition home or self-care (01) | LOC: WOU 13:48 | PROVIDERS: ATTEND Surgery | DX: Z42.1 Encounter for breast reconstruction following mastectomy (principal); Z80.3 Family history of malignant neoplasm of breast; T86.828 Other complications of skin graft (allograft) (autograft); N64.4 Mastodynia | CPT/HCPCS: 99213; A6402; J7040; Z7610; G0463 ==

== ENCOUNTER 2018-01-17 13:25 | Outpatient (CLI) | payer BC | END 2018-01-17 23:59 | disposition home or self-care (01) | LOC: WOU 13:25 | PROVIDERS: ATTEND Surgery | DX: Z42.1 Encounter for breast reconstruction following mastectomy (principal); N65.0 Deformity of reconstructed breast; N64.4 Mastodynia; Z80.3 Family history of malignant neoplasm of breast | CPT/HCPCS: G0463; Z7610 ==

== ENCOUNTER 2018-02-21 14:00 | Outpatient (CLI) | payer BC | END 2018-02-21 23:59 | disposition home or self-care (01) | LOC: WOU 14:00 | PROVIDERS: ATTEND Surgery | DX: Z42.1 Encounter for breast reconstruction following mastectomy (principal); N64.4 Mastodynia; Z80.3 Family history of malignant neoplasm of breast; Z90.13 Acquired absence of bilateral breasts and nipples | CPT/HCPCS: G0463; Z7610 ==

== ENCOUNTER 2018-03-17 13:22 | Outpatient (CLI) | payer BC | END 2018-03-17 23:59 | disposition home or self-care (01) | LOC: WOU 13:22 | PROVIDERS: ATTEND Surgery | DX: Z48.89 Encounter for other specified surgical aftercare (principal); Z90.13 Acquired absence of bilateral breasts and nipples; Z80.3 Family history of malignant neoplasm of breast | CPT/HCPCS: 99214; Z7610; G0463 ==

== ENCOUNTER 2018-03-23 15:30 | Outpatient (CLI) | payer BC ==
[2018-03-23 15:56] LABS: BASOPHILS % (AUTO) 0.8 % (0.0-2.0); EOSINOPHILS % (AUTO) 1.7 % (0.0-6.0); HEMATOCRIT 41 % (33-45); HEMOGLOBIN 13.8 g/dL (11.5-14.8); LYMPHOCYTES # (AUTO) 1.1 /CMM (0.8-4.8); LYMPHOCYTES % (AUTO) 25.6 % (20.0-44.0); MEAN CORPUSCULAR HGB CONC 33 g/dl (31.0-36.0); MEAN CORPUSCULAR VOLUME 89 fL (82-100); MONOCYTES # (AUTO) 0.3 /CMM (0.1-1.30); NEUTROPHILS # (AUTO) 2.7 /CMM (1.8-8.9); NEUTROPHILS % (AUTO) 63.9 % (43.0-81.0); PLATELET COUNT (AUTO) 195 /CMM (150-450); RED BLOOD CELL COUNT(AUTO) 4.66 MIL/uL (4.0-5.2); WHITE BLOOD COUNT (AUTO) 4.3 K/uL (4.3-11.0)
[2018-03-23 16:03] LABS: CALCIUM, SERUM 9.4 mg/dL (8.5-10.1); CREATININE 0.7 mg/dL (0.6-1.3); POTASSIUM 3.9 mmol/L (3.5-5.1)
== END 2018-03-23 23:59 | disposition home or self-care (01) ==
LOC: LAB 15:30
PROVIDERS: ATTEND Surgery
DX: N60.12 Diffuse cystic mastopathy of left breast (principal); N60.11 Diffuse cystic mastopathy of right breast; N65.1 Disproportion of reconstructed breast; Z80.3 Family history of malignant neoplasm of breast
CPT/HCPCS: 36415; 80048-TC; 85025-TC; 85730-TC

== ENCOUNTER → 2018-03-31 | Day surgery (SDC) | payer BC ==
[~2018-03-31] MED LIST changes: +BACITRACIN 50000 UNITS/VIAL ONE; +BUPIVACAINE MPF 0.5% W/EPI INJ 30 ML VIAL ONE; +FENTANYL PF 100MCG/2ML AMPUL ONE; +HYDROCODONE/APAP 5/325MG 1 EACH TABLET ONE; +HYDROCODONE/APAP 5/325MG 1 EACH TABLET PO PRN; +KETOROLAC TROMETHAMINE INJ 30 MG/ML VIAL ONE; +LIDOCAINE HCL/PF 1% 30 ML SDV ONE; +MIDAZOLAM HCL 2 MG/2ML VIAL ONE; +PROPOFOL 100 ML ONE; +SCOPOLAMINE HBR 1 EA PATCH.TD72 TD ONE; +SEVOFLURANE 250 ML BOTTLE IH ONE
== END | disposition home or self-care (01) ==
LOC: DS 08:50
PROVIDERS: ATTEND Surgery
DX: Z42.1 Encounter for breast reconstruction following mastectomy (principal)
CPT/HCPCS: 84703-TC; 88300-TC; A6402; A6403; J0690; J1100; J1885; J2250; J3010; J3490

== ENCOUNTER 2018-04-07 13:50 | Outpatient (CLI) | payer BC ==
[~2018-04-07 13:50] MED LIST changes: -BACITRACIN 50000 UNITS/VIAL ONE; -BUPIVACAINE MPF 0.5% W/EPI INJ 30 ML VIAL ONE; -FENTANYL PF 100MCG/2ML AMPUL ONE; -HYDROCODONE/APAP 5/325MG 1 EACH TABLET ONE; -HYDROCODONE/APAP 5/325MG 1 EACH TABLET PO PRN; -KETOROLAC TROMETHAMINE INJ 30 MG/ML VIAL ONE; -LIDOCAINE HCL/PF 1% 30 ML SDV ONE; -MIDAZOLAM HCL 2 MG/2ML VIAL ONE; -PROPOFOL 100 ML ONE; -SCOPOLAMINE HBR 1 EA PATCH.TD72 TD ONE; -SEVOFLURANE 250 ML BOTTLE IH ONE
== END 2018-04-07 23:59 | disposition home or self-care (01) ==
LOC: WOU 13:50
PROVIDERS: ATTEND Surgery
DX: Z48.89 Encounter for other specified surgical aftercare (principal); N64.4 Mastodynia; Z80.3 Family history of malignant neoplasm of breast
CPT/HCPCS: 99214; A6402; Z7610; G0463

== ENCOUNTER 2018-04-11 13:38 | Outpatient (CLI) | payer BC | END 2018-04-11 23:59 | disposition home or self-care (01) | LOC: WOU 13:38 | PROVIDERS: ATTEND Surgery | DX: Z48.89 Encounter for other specified surgical aftercare (principal); N64.4 Mastodynia; Z80.3 Family history of malignant neoplasm of breast; Z98.82 Breast implant status | CPT/HCPCS: 99213; A6402; Z7610; G0463 ==

== ENCOUNTER 2018-04-18 13:15 | Outpatient (CLI) | payer BC | END 2018-04-18 23:59 | disposition home or self-care (01) | LOC: WOU 13:15 | PROVIDERS: ATTEND Surgery | DX: Z48.89 Encounter for other specified surgical aftercare (principal); N64.4 Mastodynia; Z80.3 Family history of malignant neoplasm of breast; Z98.82 Breast implant status | CPT/HCPCS: 11042; A6402; G0463 ==

== ENCOUNTER 2018-05-02 13:00 | Outpatient (CLI) | payer BC | END 2018-05-02 23:59 | disposition home or self-care (01) | LOC: WOU 13:00 | PROVIDERS: ATTEND Surgery | DX: Z48.89 Encounter for other specified surgical aftercare (principal); N64.4 Mastodynia; Z80.3 Family history of malignant neoplasm of breast; Z98.82 Breast implant status | CPT/HCPCS: G0463 ==

== ENCOUNTER 2018-05-02 14:39 | Outpatient (CLI) | payer BC ==
[2018-05-02 15:36] LABS: BASOPHILS % (AUTO) 1.1 % (0.0-2.0); EOSINOPHILS % (AUTO) 2.3 % (0.0-6.0); HEMATOCRIT 42 % (33-45); HEMOGLOBIN 13.7 g/dL (11.5-14.8); LYMPHOCYTES # (AUTO) 1.1 /CMM (0.8-4.8); LYMPHOCYTES % (AUTO) 28.3 % (20.0-44.0); MEAN CORPUSCULAR HGB CONC 33 g/dl (31.0-36.0); MEAN CORPUSCULAR VOLUME 91 fL (82-100); MONOCYTES # (AUTO) 0.3 /CMM (0.1-1.30); MONOCYTES % (AUTO) 7.8 % (2.0-12.0); NEUTROPHILS # (AUTO) 2.4 /CMM (1.8-8.9); NEUTROPHILS % (AUTO) 60.5 % (43.0-81.0); PLATELET COUNT (AUTO) 225 /CMM (150-450); RED BLOOD CELL COUNT(AUTO) 4.64 MIL/uL (4.0-5.2)
== END 2018-05-02 23:59 | disposition home or self-care (01) ==
LOC: LAB 14:39
PROVIDERS: ATTEND Internal Medicine Hematology & Oncology
DX: D72.820 Lymphocytosis (symptomatic) (principal); N60.19 Diffuse cystic mastopathy of unspecified breast; Z86.2 Personal history of diseases of the blood and blood-forming organs and certain disorders involving the immune mechanism; Z80.9 Family history of malignant neoplasm, unspecified
CPT/HCPCS: 36415; 82306; 85025-TC

== ENCOUNTER 2018-05-23 13:30 | Outpatient (CLI) | payer BC | END 2018-05-23 23:59 | disposition home or self-care (01) | LOC: WOU 13:30 | PROVIDERS: ATTEND Surgery | DX: Z09 Encounter for follow-up examination after completed treatment for conditions other than malignant neoplasm (principal); Z80.3 Family history of malignant neoplasm of breast; Z98.82 Breast implant status; Z90.13 Acquired absence of bilateral breasts and nipples; N64.4 Mastodynia | CPT/HCPCS: G0463 ==

== ENCOUNTER 2018-09-26 15:00 | Outpatient (CLI) | payer BC | END 2018-09-26 23:59 | disposition home or self-care (01) | LOC: WOU 15:00 | PROVIDERS: ATTEND Surgery | DX: Z09 Encounter for follow-up examination after completed treatment for conditions other than malignant neoplasm (principal); Z80.3 Family history of malignant neoplasm of breast; N64.4 Mastodynia; Z90.13 Acquired absence of bilateral breasts and nipples; Z98.82 Breast implant status | CPT/HCPCS: G0463 ==

== ENCOUNTER 2018-10-31 13:45 | Outpatient (CLI) | payer BC | END 2018-10-31 23:59 | disposition home or self-care (01) | LOC: WOU 13:45 | PROVIDERS: ATTEND Surgery | DX: N65.1 Disproportion of reconstructed breast (principal); Z98.82 Breast implant status; N64.4 Mastodynia; Z80.3 Family history of malignant neoplasm of breast | CPT/HCPCS: G0463 ==

== ENCOUNTER 2018-11-25 08:09 | Outpatient (CLI) | payer BC | END 2018-11-25 23:59 | disposition home or self-care (01) | LOC: MRI 08:09 | DX: M25.562 Pain in left knee (principal); R60.0 Localized edema | CPT/HCPCS: 73721-TC ==

== ENCOUNTER 2018-12-22 15:54 | Outpatient (CLI) | payer BC ==
[2018-12-22 16:21] LABS: BASOPHILS % (AUTO) 0.9 % (0.0-2.0); EOSINOPHILS % (AUTO) 2.2 % (0.0-6.0); HEMATOCRIT 41 % (33-45); HEMOGLOBIN 13.3 g/dL (11.5-14.8); LYMPHOCYTES # (AUTO) 1.9 /CMM (0.8-4.8); LYMPHOCYTES % (AUTO) 43.7 % (20.0-44.0); MEAN CORPUSCULAR HGB CONC 33 g/dl (31.0-36.0); MEAN CORPUSCULAR VOLUME 90 fL (82-100); MONOCYTES # (AUTO) 0.3 /CMM (0.1-1.30); NEUTROPHILS % (AUTO) 46.2 % (43.0-81.0); PLATELET COUNT (AUTO) 205 /CMM (150-450); RED BLOOD CELL COUNT(AUTO) 4.52 MIL/uL (4.0-5.2); WHITE BLOOD COUNT (AUTO) 4.3 K/uL (4.3-11.0)
[2018-12-22 16:33] LABS: ALBUMIN 4.2 g/dL (3.4-5.0); BILIRUBIN,TOTAL 0.6 mg/dL (0.2-1.0); CALCIUM, SERUM 9.1 mg/dL (8.5-10.1); CREATININE 0.7 mg/dL (0.6-1.3); POTASSIUM 4.8 mmol/L (3.5-5.1); TOTAL PROTEIN, SERUM 7.2 g/dL (6.4-8.2)
== END 2018-12-22 23:59 | disposition home or self-care (01) ==
LOC: LAB 15:54
DX: E55.9 Vitamin D deficiency, unspecified (principal); D72.820 Lymphocytosis (symptomatic)
CPT/HCPCS: 36415; 80053-TC; 82306; 85025-TC

== ENCOUNTER 2018-12-26 14:51 | Emergency (ER) | payer BC, OTHER ==
[~2018-12-26] VITALS: Ht 157.5 cm; Wt 49.0 kg
[2018-12-26 14:51] VITALS: BP 125/75
--- NOTE | 2018-12-26 14:51 | NUR ---
"LEFT CALF PAIN AND LEFT LEG EDEMA NOTED UPON WAKING UP AT 1030" pt in bed, awake, aaox4, -sob, nad noted, vss, pt on montor, pending md dale
--- NOTE | 2018-12-26 15:56 | NUR ---
Patient discharged to home in stable condition. Written and verbal after care instructions given. Patient verbalizes understanding of instruction.
== END 2018-12-26 15:57 | disposition home or self-care (01) ==
LOC: ER 14:54
DX: R60.0 Localized edema (principal); Z90.13 Acquired absence of bilateral breasts and nipples; Z98.890 Other specified postprocedural states
CPT/HCPCS: 93971-TC

== ENCOUNTER 2019-01-23 13:00 | Outpatient (CLI) | payer BC | END 2019-01-23 23:59 | disposition home or self-care (01) | LOC: WOU 13:00 | PROVIDERS: ATTEND Surgery | DX: N65.1 Disproportion of reconstructed breast (principal); N64.4 Mastodynia; Z80.3 Family history of malignant neoplasm of breast; Z98.82 Breast implant status | CPT/HCPCS: G0463 ==

== ENCOUNTER 2019-02-02 07:58 | Outpatient (CLI) | payer BC | END 2019-02-02 23:59 | disposition home or self-care (01) | LOC: RAD 07:58 | DX: M77.52 Other enthesopathy of left foot and ankle (principal); M25.562 Pain in left knee | CPT/HCPCS: 73560-TC; 73620-TC ==

== ENCOUNTER 2019-02-20 08:30 | Outpatient (CLI) | payer BC | END 2019-02-20 23:59 | disposition home or self-care (01) | LOC: WOU 08:30 | PROVIDERS: ATTEND Surgery | DX: Z01.818 Encounter for other preprocedural examination (principal); N65.0 Deformity of reconstructed breast; Z80.3 Family history of malignant neoplasm of breast; Z98.82 Breast implant status | CPT/HCPCS: G0463 ==

== ENCOUNTER 2019-02-27 07:38 | Outpatient (CLI) | payer BC | END 2019-02-27 23:59 | disposition home or self-care (01) | LOC: LAB 07:38 | DX: Z01.818 Encounter for other preprocedural examination (principal); Z85.89 Personal history of malignant neoplasm of other organs and systems; Z86.2 Personal history of diseases of the blood and blood-forming organs and certain disorders involving the immune mechanism; Z98.890 Other specified postprocedural states; Z83.79 Family history of other diseases of the digestive system; Z82.49 Family history of ischemic heart disease and other diseases of the circulatory system; Z80.8 Family history of malignant neoplasm of other organs or systems; Z80.42 Family history of malignant neoplasm of prostate; Z80.0 Family history of malignant neoplasm of digestive organs | CPT/HCPCS: 36415; 80048-TC; 82306; 85025-TC; 85610-TC; 85730-TC ==

== ENCOUNTER 2019-03-02 09:09 | Outpatient (CLI) | payer BC | END 2019-03-02 23:59 | disposition home or self-care (01) | LOC: LAB 09:09 | DX: E83.51 Hypocalcemia (principal); Z90.13 Acquired absence of bilateral breasts and nipples; Z98.890 Other specified postprocedural states; Z80.42 Family history of malignant neoplasm of prostate; Z82.49 Family history of ischemic heart disease and other diseases of the circulatory system | CPT/HCPCS: 36415; 80053-TC ==

== ENCOUNTER 2019-03-06 05:37 | Day surgery (SDC) | payer BC ==
[2019-02-27 08:51] LABS: CALCIUM, SERUM 8.2 mg/dL (8.5-10.1); CREATININE 0.7 mg/dL (0.6-1.3); POTASSIUM 4.4 mmol/L (3.5-5.1)
[2019-02-27 09:01] LABS: BASOPHILS % (AUTO) 0.9 % (0.0-2.0); HEMATOCRIT 37 % (33-45); HEMOGLOBIN 12.1 g/dL (11.5-14.8); LYMPHOCYTES # (AUTO) 2.2 /CMM (0.8-4.8); LYMPHOCYTES % (AUTO) 47.8 % (20.0-44.0); MEAN CORPUSCULAR HGB CONC 33 g/dl (31.0-36.0); MEAN CORPUSCULAR VOLUME 88 fL (82-100); MONOCYTES # (AUTO) 0.3 /CMM (0.1-1.30); MONOCYTES % (AUTO) 7.3 % (2.0-12.0); NEUTROPHILS # (AUTO) 1.9 /CMM (1.8-8.9); PLATELET COUNT (AUTO) 168 /CMM (150-450); RED BLOOD CELL COUNT(AUTO) 4.14 MIL/uL (4.0-5.2); WHITE BLOOD COUNT (AUTO) 4.6 K/uL (4.3-11.0)
[2019-03-02 10:11] LABS: ALBUMIN 3.8 g/dL (3.4-5.0); BILIRUBIN,TOTAL 0.7 mg/dL (0.2-1.0); CALCIUM, SERUM 8.8 mg/dL (8.5-10.1); CREATININE 0.7 mg/dL (0.6-1.3); POTASSIUM 4.1 mmol/L (3.5-5.1); TOTAL PROTEIN, SERUM 6.9 g/dL (6.4-8.2)
[2019-03-06] MEDS ORDERED: ANESTHESIA TRAY IN PYXIS 1 EA TRAY MC ONE (06:41)
[2019-03-06] MEDS ORDERED: SCOPOLAMINE HBR 1 EA PATCH.TD72 TD ONE (07:00)
[2019-03-06] MEDS ORDERED: MIDAZOLAM HCL 2 MG/2ML VIAL ONE (07:05)
[2019-03-06] MEDS ORDERED: LIDOCAINE HCL/PF 1% 30 ML SDV ONE (07:11)
[2019-03-06] MEDS ORDERED: LIDOCAINE 1%-EPI 1:100,000 20 ML VIAL ONE (07:11)
[2019-03-06] MEDS ORDERED: BUPIVACAINE 0.5 % PF 150 MG/30 ML VIAL ONE (07:11)
[2019-03-06] MEDS ORDERED: CEFAZOLIN 1 GM ONE (07:32)
[2019-03-06] MEDS ORDERED: BACITRACIN 50000 UNITS/VIAL ONE (07:32)
[2019-03-06] MEDS ORDERED: GENTAMICIN 80 MG/2 ML VIAL ONE (07:32)
[2019-03-06] MEDS ORDERED: HYDROMORPHONE 1 MG/1 ML DISP.SYRIN ONE (09:24)
== END 2019-03-06 10:40 | disposition home or self-care (01) ==
LOC: DS 05:37
PROVIDERS: ATTEND Surgery
DX: N60.11 Diffuse cystic mastopathy of right breast (principal); N60.12 Diffuse cystic mastopathy of left breast; N65.0 Deformity of reconstructed breast; M25.562 Pain in left knee; Z85.3 Personal history of malignant neoplasm of breast
CPT/HCPCS: 19380; 84703; 88300; C1789; J0690 ×2; J1100; J1170; J1580; J2250; J2405; J2704; J3490 ×3; J7050; 36415; 80048-TC; 80053-TC; 82306; 85025-TC; 85610-TC; 85730-TC

== ENCOUNTER 2019-03-13 10:00 | Outpatient (CLI) | payer BC | END 2019-03-13 23:59 | disposition home or self-care (01) | LOC: WOU 10:00 | PROVIDERS: ATTEND Surgery | DX: Z48.89 Encounter for other specified surgical aftercare (principal); N65.0 Deformity of reconstructed breast; Z98.82 Breast implant status; N64.4 Mastodynia; Z80.3 Family history of malignant neoplasm of breast | CPT/HCPCS: G0463 ==

== ENCOUNTER 2019-05-08 08:30 | Outpatient (CLI) | payer BC | END 2019-05-08 23:59 | disposition home or self-care (01) | LOC: WOU 08:30 | PROVIDERS: ATTEND Surgery | DX: N61.0 Mastitis without abscess (principal); N65.0 Deformity of reconstructed breast; N64.4 Mastodynia; Z98.82 Breast implant status; Z80.3 Family history of malignant neoplasm of breast | CPT/HCPCS: G0463 ==

== ENCOUNTER 2019-05-15 08:30 | Outpatient (CLI) | payer BC | END 2019-05-15 23:59 | disposition home or self-care (01) | LOC: WOU 08:30 | PROVIDERS: ATTEND Surgery | DX: N65.0 Deformity of reconstructed breast (principal); N64.4 Mastodynia; Z98.82 Breast implant status; Z80.3 Family history of malignant neoplasm of breast | CPT/HCPCS: G0463 ==

== ENCOUNTER 2019-06-05 08:30 | Outpatient (CLI) | payer BC | END 2019-06-05 23:59 | disposition home or self-care (01) | LOC: WOU 08:30 | PROVIDERS: ATTEND Surgery | DX: N65.0 Deformity of reconstructed breast (principal); N64.4 Mastodynia; Z98.82 Breast implant status; Z80.3 Family history of malignant neoplasm of breast | CPT/HCPCS: G0463 ==

== ENCOUNTER 2019-11-10 04:40 | Emergency (ER) | payer BC, OTHER ==
[~2019-11-10] VITALS: Ht 157.5 cm; Wt 49.9 kg
--- NOTE | 2019-11-10 04:45 | NUR ---
PT BIBSELF C/O L SHOULDER PAIN S/P PUSHING GURNEY. PT REPORTS WORK INJURY WHILE TRANSFERING PT. PLACED IN BED ON MONITOR AND PULSE OX. AWAITING MD FOR EVAL.
[2019-11-10 05:06] VITALS: BP 109/63
--- NOTE | 2019-11-10 06:03 | NUR ---
Patient discharged to home in stable condition. Written and verbal after care instructions given. Patient verbalizes understanding of instruction and RX. Pt ambulated with steady gait. vss.
== END 2019-11-10 05:49 | disposition home or self-care (01) ==
LOC: ER 04:40
DX: S46.812A Strain of other muscles, fascia and tendons at shoulder and upper arm level, left arm, initial encounter (principal); Z98.890 Other specified postprocedural states; Z79.899 Other long term (current) drug therapy; Z90.13 Acquired absence of bilateral breasts and nipples; W50.2XXA Accidental twist by another person, initial encounter; Y93.89 Activity, other specified; Y92.89 Other specified places as the place of occurrence of the external cause; Y99.0 Civilian activity done for income or pay

== ENCOUNTER 2019-11-23 13:00 | Outpatient (CLI) | payer OTHER, BC | END 2019-11-23 23:59 | disposition home or self-care (01) | LOC: WOU 13:00 | PROVIDERS: ATTEND Surgery | DX: Z09 Encounter for follow-up examination after completed treatment for conditions other than malignant neoplasm (principal); N65.0 Deformity of reconstructed breast; Z80.3 Family history of malignant neoplasm of breast; Z98.82 Breast implant status | CPT/HCPCS: G0463 ==

== ENCOUNTER 2019-12-11 15:38 | Outpatient (CLI) | payer BC, OTHER ==
[2019-12-11 16:12] LABS: BASOPHILS # (AUTO) 0.1 /CMM (0.0-0.2); EOSINOPHILS % (AUTO) 1.7 % (0.0-6.0); HEMATOCRIT 42 % (33-45); HEMOGLOBIN 13.5 g/dL (11.5-14.8); LYMPHOCYTES # (AUTO) 0.9 /CMM (0.8-4.8); LYMPHOCYTES % (AUTO) 27.8 % (20.0-44.0); MEAN CORPUSCULAR HGB CONC 32 g/dl (31.0-36.0); MEAN CORPUSCULAR VOLUME 90 fL (82-100); MONOCYTES # (AUTO) 0.2 /CMM (0.1-1.30); MONOCYTES % (AUTO) 6.6 % (2.0-12.0); NEUTROPHILS # (AUTO) 2.1 /CMM (1.8-8.9); NEUTROPHILS % (AUTO) 61.9 % (43.0-81.0); PLATELET COUNT (AUTO) 214 /CMM (150-450); RED BLOOD CELL COUNT(AUTO) 4.64 MIL/uL (4.0-5.2); WHITE BLOOD COUNT (AUTO) 3.4 K/uL (4.3-11.0)
[2019-12-11 16:25] LABS: ALBUMIN 4.2 g/dL (3.4-5.0); BILIRUBIN,TOTAL 0.6 mg/dL (0.2-1.0); CALCIUM, SERUM 8.6 mg/dL (8.5-10.1); CREATININE 0.7 mg/dL (0.6-1.3); POTASSIUM 3.9 mmol/L (3.5-5.1); TOTAL PROTEIN, SERUM 7.5 g/dL (6.4-8.2)
== END 2019-12-11 23:59 | disposition home or self-care (01) ==
LOC: LAB 15:38
DX: Z32.00 Encounter for pregnancy test, result unknown (principal)
CPT/HCPCS: 36415; 80053-TC; 85025-TC; 85610-TC; 85730-TC

== ENCOUNTER 2019-12-15 13:30 | Outpatient (CLI) | payer BC | END 2019-12-15 23:59 | disposition home or self-care (01) | LOC: LAB 13:30 | PROVIDERS: ATTEND Surgery | DX: Z01.812 Encounter for preprocedural laboratory examination (principal); Z20.828 Contact with and (suspected) exposure to other viral communicable diseases; N65.0 Deformity of reconstructed breast | CPT/HCPCS: C9803; U0003 ==

== ENCOUNTER 2019-12-21 10:39 | Day surgery (SDC) | payer BC ==
[2019-12-21] MEDS ORDERED: CHOL100040 PO (10:51)
[2019-12-21] MEDS ORDERED: ASCO-352 PO (10:51)
[2019-12-21] MEDS ORDERED: GLUC100017 PO (10:51)
[2019-12-21] MEDS ORDERED: TURM500C9 PO (10:51)
[2019-12-21] MEDS ORDERED: SCOPOLAMINE HBR 1 EA PATCH.TD72 TD ONE (11:55)
[2019-12-21] MEDS ORDERED: MIDAZOLAM HCL 2 MG/2ML VIAL ONE (12:06)
[2019-12-21] MEDS ORDERED: SUCCINYLCHOLINE CHLORIDE 20 MG/ML VIAL ONE (12:07)
[2019-12-21] MEDS ORDERED: FENTANYL PF 100MCG/2ML AMPUL ONE (12:07)
[2019-12-21] MEDS ORDERED: HYDROMORPHONE INJ 2 MG/ML DISP.SYRIN ONE (12:08)
[2019-12-21] MEDS ORDERED: LIDOCAINE 1%-EPI 1:100,000 20 ML VIAL ONE (12:14)
[2019-12-21] MEDS ORDERED: LIDOCAINE HCL/MPF 1% 30 ML VIAL IJ ONE (12:44)
[2019-12-21] MEDS ORDERED: LIDOCAINE MPF 1%-EPI 1:200,000 30 ML VIAL IJ ONE (12:44)
[2019-12-21] MEDS ORDERED: BUPIVACAINE MPF 0.5% W/EPI INJ 30 ML VIAL ONE (12:45)
[2019-12-21] MEDS ORDERED: ONDANSETRON HCL/PF 4 MG/2 ML VIAL IV PRN (16:00)
[2019-12-21] MEDS ORDERED: HYDROCODONE/APAP 10/325MG TABLET PO PRN (16:00)
== END 2019-12-21 18:00 | disposition home or self-care (01) ==
DX: C50.912 Malignant neoplasm of unspecified site of left female breast (principal); C50.911 Malignant neoplasm of unspecified site of right female breast; Z90.13 Acquired absence of bilateral breasts and nipples; N65.1 Disproportion of reconstructed breast
CPT/HCPCS: 19380; 84703; A6253; J0330 ×2; J0690; J1100; J1170; J2250; J2405 ×2; J2704; J2765; J3010; J3490 ×2

== ENCOUNTER 2020-06-06 14:30 | Outpatient (CLI) | payer BC ==
[~2020-06-06 14:30] MED LIST changes: +ASCO-352 PO; -CEPH-570 PO; +CHOL100040 PO; +GLUC100017 PO; -HYDR-3972 PO; -TRAM50TA2 PO; +TURM500C9 PO
== END 2020-06-06 23:59 | disposition home or self-care (01) ==
LOC: WOU 14:30
PROVIDERS: ATTEND Surgery
DX: Z09 Encounter for follow-up examination after completed treatment for conditions other than malignant neoplasm (principal); Z98.82 Breast implant status; Z80.3 Family history of malignant neoplasm of breast
CPT/HCPCS: G0463

== ENCOUNTER 2020-08-22 15:50 | Outpatient (CLI) | payer BC | END 2020-08-22 23:59 | disposition home or self-care (01) | LOC: WOU 15:50 | PROVIDERS: ATTEND Surgery | DX: N63.10 Unspecified lump in the right breast, unspecified quadrant (principal); Z80.3 Family history of malignant neoplasm of breast; Z98.82 Breast implant status | CPT/HCPCS: G0463 ==

== ENCOUNTER 2020-09-05 14:40 | Outpatient (CLI) | payer BC | END 2020-09-05 23:59 | disposition home or self-care (01) | LOC: WOU 14:40 | PROVIDERS: ATTEND Surgery | DX: N63.10 Unspecified lump in the right breast, unspecified quadrant (principal); T86.828 Other complications of skin graft (allograft) (autograft); N64.4 Mastodynia; Z80.3 Family history of malignant neoplasm of breast; Z98.82 Breast implant status | CPT/HCPCS: G0463 ==

== ENCOUNTER 2020-10-23 07:51 | Outpatient (CLI) | payer BC ==
[2020-10-23 08:57] LABS: BASOPHILS % (AUTO) 0.8 % (0.0-2.0); EOSINOPHILS % (AUTO) 2.7 % (0.0-6.0); HEMATOCRIT 40 % (33-45); HEMOGLOBIN 13.1 g/dL (11.5-14.8); LYMPHOCYTES # (AUTO) 2.2 K/uL (0.8-4.8); LYMPHOCYTES % (AUTO) 40.9 % (20.0-44.0); MEAN CORPUSCULAR HGB CONC 33 g/dl (31.0-36.0); MEAN CORPUSCULAR VOLUME 89 fL (82-100); MONOCYTES # (AUTO) 0.4 K/uL (0.1-1.30); MONOCYTES % (AUTO) 8.2 % (2.0-12.0); NEUTROPHILS # (AUTO) 2.5 K/uL (1.8-8.9); NEUTROPHILS % (AUTO) 47.4 % (43.0-81.0); PLATELET COUNT (AUTO) 228 K/uL (150-450); RED BLOOD CELL COUNT(AUTO) 4.45 MIL/uL (4.0-5.2); WHITE BLOOD COUNT (AUTO) 5.4 K/uL (4.3-11.0)
[2020-10-23 10:22] LABS: ALBUMIN 4.1 g/dL (3.4-5.0); BILIRUBIN,TOTAL 0.4 mg/dL (0.2-1.0); CALCIUM, SERUM 8.7 mg/dL (8.5-10.1); CREATININE 0.7 mg/dL (0.6-1.3); TOTAL PROTEIN, SERUM 7.2 g/dL (6.4-8.2)
== END 2020-10-23 23:59 | disposition home or self-care (01) ==
LOC: LAB 07:51
PROVIDERS: ATTEND Internal Medicine Hematology & Oncology
DX: D72.820 Lymphocytosis (symptomatic) (principal)
CPT/HCPCS: 36415; 80053-TC; 85025-TC

== ENCOUNTER 2020-10-28 03:30 | Emergency (ER) | payer BC, OTHER ==
[~2020-10-28] VITALS: Ht 157.5 cm; Wt 51.3 kg
[2020-10-28 03:31] VITALS: BP 103/69
== END 2020-10-28 05:15 | disposition home or self-care (01) ==
LOC: ER 03:33
DX: R53.1 Weakness (principal); Z20.822 Contact with and (suspected) exposure to COVID-19
CPT/HCPCS: 87426; 99283; C9803; U0003

== ENCOUNTER 2021-01-17 04:38 | Emergency (ER) | payer OTHER ==
[~2021-01-17] VITALS: Ht 157.5 cm; Wt 49.9 kg
[2021-01-17 04:39] VITALS: BP 106/63
== END 2021-01-17 04:53 | disposition home or self-care (01) ==
LOC: ER 04:39
DX: J02.9 Acute pharyngitis, unspecified (principal); Z20.822 Contact with and (suspected) exposure to COVID-19; Z90.13 Acquired absence of bilateral breasts and nipples
CPT/HCPCS: 99283; C9803; U0003

== ENCOUNTER 2021-02-20 06:03 | Emergency (ER) | payer OTHER ==
[~2021-02-20] VITALS: Ht 157.5 cm; Wt 49.9 kg
[2021-02-20 06:05] VITALS: BP 103/66
--- NOTE | 2021-02-20 07:40 | NUR ---
Patient discharged to home in stable condition. Written and verbal after care instructions given. Patient verbalizes understanding of instruction.
== END 2021-02-20 07:41 | disposition home or self-care (01) ==
LOC: ER 06:11
DX: Z20.822 Contact with and (suspected) exposure to COVID-19 (principal); Z90.13 Acquired absence of bilateral breasts and nipples
CPT/HCPCS: 87426; 99283; C9803

== ENCOUNTER 2021-03-17 01:16 | Emergency (ER) | payer OTHER ==
[~2021-03-17] VITALS: Ht 157.5 cm; Wt 49.9 kg
[2021-03-17 01:18] VITALS: BP 100/60
== END 2021-03-17 01:37 | disposition home or self-care (01) ==
LOC: ER 01:17
DX: Z20.822 Contact with and (suspected) exposure to COVID-19 (principal); Z90.13 Acquired absence of bilateral breasts and nipples
CPT/HCPCS: 99283; C9803; U0003

== ENCOUNTER 2021-03-26 02:19 | Emergency (ER) | payer OTHER ==
[~2021-03-26] VITALS: Ht 157.5 cm; Wt 50.3 kg
[2021-03-26 02:21] VITALS: BP 111/66
== END 2021-03-26 02:32 | disposition home or self-care (01) ==
LOC: ER 02:20
DX: Z20.822 Contact with and (suspected) exposure to COVID-19 (principal)
CPT/HCPCS: C9803; U0003

== ENCOUNTER 2021-04-02 02:24 | Emergency (ER) | payer OTHER ==
[~2021-04-02] VITALS: Ht 157.5 cm; Wt 50.3 kg
[2021-04-02 02:30] VITALS: BP 111/64
== END 2021-04-02 03:14 | disposition home or self-care (01) ==
LOC: ER 02:25
DX: Z20.822 Contact with and (suspected) exposure to COVID-19 (principal); Z90.13 Acquired absence of bilateral breasts and nipples
CPT/HCPCS: 99283; C9803; U0003

== ENCOUNTER 2021-04-09 03:12 | Emergency (ER) | payer OTHER ==
[~2021-04-09] VITALS: Ht 157.5 cm; Wt 50.3 kg
[2021-04-09 03:15] VITALS: BP 118/84
== END 2021-04-09 04:44 | disposition home or self-care (01) ==
LOC: ER 03:13
DX: Z20.822 Contact with and (suspected) exposure to COVID-19 (principal); Z98.890 Other specified postprocedural states
CPT/HCPCS: 99283; C9803; U0003

== ENCOUNTER 2021-04-16 03:13 | Emergency (ER) | payer OTHER ==
[~2021-04-16] VITALS: Ht 157.5 cm; Wt 50.3 kg
[2021-04-16 03:16] VITALS: BP 114/66
== END 2021-04-16 03:56 | disposition home or self-care (01) ==
LOC: ER 03:14
DX: Z20.822 Contact with and (suspected) exposure to COVID-19 (principal); Z98.890 Other specified postprocedural states; Z79.899 Other long term (current) drug therapy
CPT/HCPCS: 99283; C9803; U0003

== ENCOUNTER 2021-04-23 01:53 | Emergency (ER) | payer OTHER ==
[~2021-04-23] VITALS: Ht 157.5 cm; Wt 50.8 kg
[2021-04-23 02:00] VITALS: BP 114/72
--- NOTE | 2021-04-23 02:21 | NUR ---
Patient discharged to home in stable condition. Written and verbal after care instructions given. Patient verbalizes understanding of instruction. pT ambulatory with a steady gait
== END 2021-04-23 02:20 | disposition home or self-care (01) ==
LOC: ER 01:58
DX: Z20.822 Contact with and (suspected) exposure to COVID-19 (principal); Z98.890 Other specified postprocedural states; Z79.899 Other long term (current) drug therapy
CPT/HCPCS: C9803; U0003

== ENCOUNTER 2021-05-07 03:14 | Emergency (ER) | payer OTHER ==
[~2021-05-07] VITALS: Ht 157.5 cm; Wt 50.3 kg
[2021-05-07 03:28] VITALS: BP 111/63
== END 2021-05-07 03:53 | disposition home or self-care (01) ==
LOC: ER 03:17
DX: Z20.822 Contact with and (suspected) exposure to COVID-19 (principal)
CPT/HCPCS: 87426; 99283; C9803; U0003

== ENCOUNTER 2022-09-24 00:07 | Emergency (ER) | payer BC, OTHER ==
[~2022-09-24] VITALS: Ht 157.5 cm; Wt 51.3 kg
--- NOTE | 2022-09-24 00:14 | NUR ---
BIBS FOR C/O WORSENING L BACK PAIN . PT A/OX4. TOLERATING R/A WELL WITH NO RESP DISTRESS.
[2022-09-24] MEDS ORDERED: IBUPROFEN 400 MG TABLET ONE (00:23)
[2022-09-24] MEDS ORDERED: IBUPROFEN 400 MG TABLET PO ONE (00:30)
--- NOTE | 2022-09-24 00:34 | NUR ---
LFA #20G S/L BLOOD AND URINE COLLECTED AND SENT TO LAB
--- NOTE | 2022-09-24 00:46 | NUR ---
PT TAKEN TO CT VIA W/C
[2022-09-24 00:54] LABS: BASOPHILS % (AUTO) 0.6 % (0.0-2.0); EOSINOPHILS % (AUTO) 2.5 % (0.0-6.0); HEMATOCRIT 40 % (33-45); HEMOGLOBIN 13.1 g/dL (11.5-14.8); LYMPHOCYTES % (AUTO) 31.6 % (20.0-44.0); MEAN CORPUSCULAR HGB CONC 33 g/dl (31.0-36.0); MEAN CORPUSCULAR VOLUME 89 fL (82-100); MONOCYTES # (AUTO) 0.5 K/uL (0.1-1.30); MONOCYTES % (AUTO) 7.9 % (2.0-12.0); NEUTROPHILS # (AUTO) 3.5 K/uL (1.8-8.9); NEUTROPHILS % (AUTO) 57.4 % (43.0-81.0); PLATELET COUNT (AUTO) 220 K/uL (150-450); RED BLOOD CELL COUNT(AUTO) 4.45 MIL/uL (4.0-5.2); WHITE BLOOD COUNT (AUTO) 6.2 K/uL (4.3-11.0)
--- NOTE | 2022-09-24 00:54 | NUR ---
PT RETURNED TO ER FROM CT
[2022-09-24 01:05] LABS: BILIRUBIN,URINE NEGATIVE (NEGATIVE); COLOR,URINE YELLOW (YELLOW); LEUKOCYTE ESTERASE ,URINE NEGATIVE (NEGATIVE); NITRITE, URINE POSITIVE (NEGATIVE); PH,URINE 6.5 (5.0-8.0); PROTEIN,URINE NEGATIVE (NEGATIVE); UGLUCOSE NEGATIVE (NEGATIVE)
[2022-09-24 01:10] LABS: BILIRUBIN,DIRECT 0.1 mg/dL (0.0-0.2); BILIRUBIN,TOTAL 0.7 mg/dL (0.2-1.0); CALCIUM, SERUM 9.1 mg/dL (8.5-10.1); CREATININE 0.7 mg/dL (0.6-1.3); POTASSIUM 3.6 mmol/L (3.5-5.1)
[2022-09-24 01:21] LABS: BACTERIA,URINE 1+ /HPF (None Seen); RBC,URINE 0-2 /HPF (0-2)
[2022-09-24] MEDS ORDERED: NITR100C6 PO (02:13)
[2022-09-24 02:30] VITALS: BP 112/60; TEMP 98.2
--- NOTE | 2022-09-24 02:30 | NUR ---
Patient discharged to home in stable condition. Written and verbal after care instructions given. Patient verbalizes understanding of instruction. IV removed. Catheter intact and site benign. Pressure and 4x4 applied to site. No bleeding noted.
== END 2022-09-24 02:31 | disposition home or self-care (01) ==
LOC: ER 00:09
DX: N39.0 Urinary tract infection, site not specified (principal); M54.50 Low back pain, unspecified; Z79.899 Other long term (current) drug therapy
CPT/HCPCS: 36415; 80048-TC; 80076-TC; 81001; 83690-TC; 85025-TC; 87086-TC

== ENCOUNTER 2023-02-09 03:23 | Emergency (ER) | payer OTHER ==
[~2023-02-09] VITALS: Ht 157.5 cm; Wt 51.3 kg
[~2023-02-09 03:23] MED LIST changes: +NITR100C6 PO
[2023-02-09 03:45] VITALS: BP 111/68; TEMP 98.2
[2023-02-09 05:01] VITALS: O2SAT 99
== END 2023-02-09 05:02 | disposition home or self-care (01) ==
LOC: ER 03:27
DX: M25.512 Pain in left shoulder (principal); M79.632 Pain in left forearm; Z98.890 Other specified postprocedural states; Z79.899 Other long term (current) drug therapy

== ENCOUNTER 2023-06-09 12:58 | Emergency (ER) | payer BC, OTHER ==
[~2023-06-09] VITALS: Ht 157.5 cm; Wt 52.2 kg
[2023-06-09 13:56] LABS: BASOPHILS % (AUTO) 1.2 % (0.0-2.0); EOSINOPHILS # (AUTO) 0.4 K/uL (0.0-0.7); EOSINOPHILS % (AUTO) 10.5 % (0.0-6.0); HEMATOCRIT 39 % (33-45); HEMOGLOBIN 12.9 g/dL (11.5-14.8); LYMPHOCYTES # (AUTO) 1.2 K/uL (0.8-4.8); LYMPHOCYTES % (AUTO) 31.9 % (20.0-44.0); MEAN CORPUSCULAR HEMOGLOBIN 29 PG (26.0-33.0); MEAN CORPUSCULAR HGB CONC 33 g/dl (31.0-36.0); MEAN CORPUSCULAR VOLUME 88 fL (82-100); MONOCYTES # (AUTO) 0.3 K/uL (0.1-1.30); MONOCYTES % (AUTO) 7.3 % (2.0-12.0); NEUTROPHILS # (AUTO) 1.9 K/uL (1.8-8.9); NEUTROPHILS % (AUTO) 49.1 % (43.0-81.0); PLATELET COUNT (AUTO) 203 K/uL (150-450); RED BLOOD CELL COUNT(AUTO) 4.45 MIL/uL (4.0-5.2); RED CELL DISTRIBUTION WIDTH 12.8 % (11.5-15.0); WHITE BLOOD COUNT (AUTO) 3.9 K/uL (4.3-11.0)
[2023-06-09 14:07] LABS: CALCIUM, SERUM 8.6 mg/dL (8.5-10.1); CARBON DIOXIDE 27 mmol/L (21-32); CHLORIDE 104 mmol/L (98-107); CREATININE 0.7 mg/dL (0.6-1.3); GLUCOSE 86 mg/dL (74-106); POTASSIUM 3.9 mmol/L (3.5-5.1); SODIUM SERUM 138 mmol/L (136-145); UREA NITROGEN, BLOOD 12 mg/dL (7-18)
[2023-06-09] MEDS ORDERED: FAMO-131 PO (15:09)
[2023-06-09] MEDS ORDERED: KETOROLAC TROMETHAMINE 15 MG/ML VIAL ONE (15:09)
[2023-06-09] MEDS ORDERED: MAG HYDROX/AL HYDROX/SIMETH 30 ML UDC ONE (15:10)
[2023-06-09] MEDS ORDERED: FAMOTIDINE/PF INJ 20 MG/2 ML VIAL IV ONE (15:10)
[2023-06-09] MEDS ORDERED: LIDOCAINE VISCOUS 2% UD 15 ML UDC ONE (15:10)
[2023-06-09] MEDS: IV NS 0.9% 1,000 ML BAG IV ONE (15:27)
[2023-06-09] MEDS: FAMOTIDINE/PF INJ 20 MG/2 ML VIAL IV ONE (15:28)
[2023-06-09] MEDS: KETOROLAC TROMETHAMINE 15 MG/ML VIAL IV ONE (15:28)
[2023-06-09] MEDS: MAG HYDROX/AL HYDROX/SIMETH 30 ML UDC PO ONE (15:29)
[2023-06-09] MEDS: LIDOCAINE VISCOUS 2% UD 15 ML UDC MM ONE (15:29)
[2023-06-09 16:03] LABS: ALBUMIN 3.4 g/dL (3.4-5.0); BILIRUBIN,TOTAL 0.7 mg/dL (0.2-1.0)
[2023-06-09 16:18] VITALS: BP 118/71; TEMP 98.2; O2SAT 100
[2023-06-09 16:26] LABS: BILIRUBIN,DIRECT 0.2 mg/dL (0.0-0.2)
== END 2023-06-09 16:18 | disposition home or self-care (01) ==
LOC: ER 13:11
DX: R07.89 Other chest pain (principal); R10.13 Epigastric pain; Z79.899 Other long term (current) drug therapy
CPT/HCPCS: 99285; 96374; 71045; 96361; 96375; 93005 ×3; 85025; 80048; 83690; 80076; 36415; 84484 ×2; J3490; J7030; J1885

== ENCOUNTER 2024-03-13 07:47 | Emergency (ER) | payer BC, OTHER ==
[~2024-03-13] VITALS: Ht 157.5 cm; Wt 49.9 kg
[~2024-03-13 07:47] MED LIST changes: +FAMO-131 PO
[2024-03-13 07:49] VITALS: BP 121/74; TEMP 98.7; O2SAT 99
[2024-03-13] MEDS: AZITHROMYCIN 250 MG TABLET PO ONE (08:12)
== END 2024-03-13 08:25 | disposition home or self-care (01) ==
LOC: ER 07:50
DX: Z20.811 Contact with and (suspected) exposure to meningococcus (principal)

== ENCOUNTER 2024-07-28 03:45 | Emergency (ER) | payer BC ==
[~2024-07-28] VITALS: Ht 157.5 cm; Wt 52.2 kg
[2024-07-28 03:50] VITALS: BP 111/63; TEMP 98.6; O2SAT 99
[2024-07-28 04:05] LABS: BASOPHILS % (AUTO) 0.6 % (0.0-2.0); EOSINOPHILS # (AUTO) 0.1 K/uL (0.0-0.7); EOSINOPHILS % (AUTO) 1.4 % (0.0-6.0); HEMATOCRIT 41 % (33-45); HEMOGLOBIN 13.4 g/dL (11.5-14.8); LYMPHOCYTES # (AUTO) 2.1 K/uL (0.8-4.8); LYMPHOCYTES % (AUTO) 30.7 % (20.0-44.0); MEAN CORPUSCULAR HEMOGLOBIN 29 PG (26.0-33.0); MEAN CORPUSCULAR HGB CONC 33 g/dl (31.0-36.0); MEAN CORPUSCULAR VOLUME 88 fL (82-100); MONOCYTES # (AUTO) 0.5 K/uL (0.1-1.30); MONOCYTES % (AUTO) 6.7 % (2.0-12.0); NEUTROPHILS # (AUTO) 4.1 K/uL (1.8-8.9); NEUTROPHILS % (AUTO) 60.6 % (43.0-81.0); PLATELET COUNT (AUTO) 222 K/uL (150-450); RED CELL DISTRIBUTION WIDTH 12.6 % (11.5-15.0); WHITE BLOOD COUNT (AUTO) 6.7 K/uL (4.3-11.0)
[2024-07-28 04:22] LABS: CALCIUM, SERUM 9.1 mg/dL (8.5-10.1); CREATININE 0.6 mg/dL (0.6-1.3)
== END 2024-07-28 04:34 | disposition home or self-care (01) ==
LOC: ER 03:47
DX: M79.10 Myalgia, unspecified site (principal); M79.652 Pain in left thigh; M79.651 Pain in right thigh; Z90.13 Acquired absence of bilateral breasts and nipples
CPT/HCPCS: 36415; 80048-TC; 82550-TC; 85025-TC

== ENCOUNTER 2024-10-01 19:46 | Emergency (ER) | payer BC, OTHER ==
[~2024-10-01] VITALS: Ht 157.5 cm; Wt 52.2 kg
[2024-10-01] MEDS ORDERED: CT SWABBABLE VALVE TRANS SET 1 EA INFUS.SET MC ONE (20:09)
[2024-10-01] MEDS ORDERED: IV NS 0.9% 250 ML IV ONE (20:09)
[2024-10-01] MEDS ORDERED: IOHEXOL-300 100 ML VIAL IV ONE (20:09)
[2024-10-01 21:28] VITALS: BP 110/74; TEMP 97.8; O2SAT 100
== END 2024-10-01 21:28 | disposition home or self-care (01) ==
LOC: ER 19:48
DX: S30.1XXA Contusion of abdominal wall, initial encounter (principal); G89.18 Other acute postprocedural pain; R19.06 Epigastric swelling, mass or lump; Z90.13 Acquired absence of bilateral breasts and nipples; X58.XXXA Exposure to other specified factors, initial encounter; Y93.89 Activity, other specified; Y92.89 Other specified places as the place of occurrence of the external cause; Y99.8 Other external cause status
CPT/HCPCS: 99285; 74177; J7050; Q9967

== ENCOUNTER 2024-10-24 22:36 | Emergency (ER) | payer BC, OTHER ==
[~2024-10-24] VITALS: Ht 157.5 cm; Wt 52.2 kg
[2024-10-24 22:39] VITALS: BP 101/63; TEMP 98; O2SAT 99
[2024-10-24] MEDS ORDERED: CIPROFLOXACIN HCL 500 MG TABLET ONE (22:42)
[2024-10-24] MEDS: CIPROFLOXACIN HCL 250 MG TABLET PO ONE (22:47)
[2024-10-25] MEDS: AZITHROMYCIN 250 MG TABLET PO ONE (00:30)
== END 2024-10-25 01:55 | disposition home or self-care (01) ==
LOC: ER 22:39
DX: Z13.89 Encounter for screening for other disorder (principal); Z98.890 Other specified postprocedural states; Z79.899 Other long term (current) drug therapy